=== PATIENT | female | born 1940 | race Caucasian/White ===

== ENCOUNTER 2018-10-16 05:58 | Day surgery (SDC) | payer MEDICARE, BC ==
[~2018-10-16] VITALS: Ht 170.2 cm; Wt 87.5 kg
[2018-10-16] VITALS (12 sets, daily range): BP systolic 122–146; BP diastolic 61–99
[2018-10-16] MEDS ORDERED: diphenhydrAMINE 25mg capsule PO PRN (06:20)
[2018-10-16] MEDS ORDERED: sod bicarbonate 150mEq in D5W 1,150 ML IV ONE (06:20)
[2018-10-16] MEDS ORDERED: NITR0.4T51 SL (06:37)
[2018-10-16] MEDS ORDERED: ATOR40TA PO (06:37)
[2018-10-16] MEDS ORDERED: METO-539 PO (06:37)
[2018-10-16] MEDS ORDERED: ASPI-107 PO (06:37)
[2018-10-16] MEDS ORDERED: CHOL50004 PO (06:37)
[2018-10-16] MEDS ORDERED: VIT1CAPS9 PO (06:37)
[2018-10-16] MEDS ORDERED: normal saline 1000ml 1,000 ML IV SCH (06:40)
[2018-10-16 07:36] LABS: BASOPHILS % (AUTO) 0.6 % (0-1); EOSINOPHILS % (AUTO) 0 % (0-6); HEMATOCRIT 41.1 % (35.0-45.0); HEMOGLOBIN 13.7 g/dl (12.0-16.0); LYMPHOCYTES # (AUTO) 0.9 X10'3 (1.1-4.8); LYMPHOCYTES % (AUTO) 15.5 % (21-51); MEAN CORPUSCULAR HEMOGLOBIN 30.2 PG (27.0-31.0); MEAN CORPUSCULAR HGB CONC 33.4 % (33.0-36.5); MEAN CORPUSCULAR VOLUME 90.2 FL (78-98); MEAN PLATELET VOLUME 7.7 FL (7.4-10.4); MONOCYTES # (AUTO) 0.6 X10'3 (0-0.9); MONOCYTES % (AUTO) 11.1 % (2-12); NEUTROPHILS # (AUTO) 4.1 X10'3 (1.8-7.7); NEUTROPHILS % (AUTO) 72.8 % (42-75); PLATELET COUNT 230 X10'3 (140-440); RED BLOOD COUNT 4.55 X10'6 (4.20-5.60); RED CELL DISTRIBUTION WIDTH 14.4 % (11.5-14.5); WHITE BLOOD COUNT 5.6 X10'3 (4.5-11.0)
[2018-10-16] MEDS ORDERED: iohexol 350 MG/ML 50ML vial IV ONE (07:36)
[2018-10-16] MEDS ORDERED: fentaNYL/PF 50MCG/1 ML 2ML syringe ONE (07:37)
[2018-10-16] MEDS ORDERED: iohexol 350MG/ML 100ml bottle IV ONE ×2 (07:37→08:40)
[2018-10-16] MEDS ORDERED: LIDOcaine 1% (10mg/ml)w/preservative injection 20ml MDV ONE (07:37)
[2018-10-16] MEDS ORDERED: midazolam 2 mg/2 ml injection ONE (07:37)
[2018-10-16] MEDS ORDERED: verapamil 2.5 mg/ml inj IV ONE (07:41)
[2018-10-16] MEDS ORDERED: heparin 1,000unit/ml 10ml vial 10 ML ONE (07:41)
[2018-10-16] MEDS ORDERED: nitroGLYCERIN-Tridil 50MG/D5W 250 ML IV ONE (07:41)
[2018-10-16 09:10] LABS: ALBUMIN 3.8 G/DL (3.4-5.0); ANION GAP 9 (8-16); BLOOD UREA NITROGEN 18 MG/DL (7-18); CALCIUM 9.6 MG/DL (8.5-10.1); CHLORIDE 104 MMOL/L (99-107); GLUCOSE 90 MG/DL (70-104); MAGNESIUM 2.2 MG/DL (1.5-2.4); POTASSIUM 3.9 MMOL/L (3.5-5.1); SODIUM 143 MMOL/L (135-145); eGFR 54 ML/MIN
== END 2018-10-16 12:00 | disposition home or self-care (01) ==
LOC: SSTAY O 05:58
PROVIDERS: ATTEND Internal Medicine Cardiovascular Disease
DX: I25.118 Atherosclerotic heart disease of native coronary artery with other forms of angina pectoris (principal); I25.2 Old myocardial infarction; E78.5 Hyperlipidemia, unspecified; F32.9 Major depressive disorder, single episode, unspecified; Z86.74 Personal history of sudden cardiac arrest; Z87.09 Personal history of other diseases of the respiratory system; Z91.011 Allergy to milk products; Z88.5 Allergy status to narcotic agent; Z88.7 Allergy status to serum and vaccine; Z88.6 Allergy status to analgesic agent; Z95.5 Presence of coronary angioplasty implant and graft; Z79.82 Long term (current) use of aspirin; Z90.89 Acquired absence of other organs; Z90.710 Acquired absence of both cervix and uterus; Z79.899 Other long term (current) drug therapy; Z98.890 Other specified postprocedural states; Z82.49 Family history of ischemic heart disease and other diseases of the circulatory system; Z81.1 Family history of alcohol abuse and dependence; Z82.3 Family history of stroke; Z80.3 Family history of malignant neoplasm of breast
CPT/HCPCS: 36415; 80048; 83735; 85025; 85610; 93005; 93458; 99152; 99153; A6257; J1644; J2001; J2250; J3010; J7030; Q0163; Q9967; A4620; C1769; C1894; J3490